=== PATIENT | male | born 1960 | race Caucasian/White ===

== ENCOUNTER → 2018-01-25 | Outpatient (CLI) | payer OTHER ==
[~2018-01-25] MED LIST: DARVOCET N 1001 TAB PO; DAYPRO600 M1 PO; FLEXERIL10 MG PO; KEFLEX500 M1 PO; Motrin,Rufen800 MG PO; NORCO 5-325 TA1 EACH PO; ULTRAM50 MG PO
[2018-01-25 11:55] LABS: HEMATOCRIT 51.3 % (42.0-52.0); HEMOGLOBIN 16.9 g/dl (14.0-18.0); MEAN CELL VOLUME 92.9 fl (80.0-94.0); MEAN CORPUSCULAR HGB 30.6 pg (27.0-31.0); MEAN CORPUSCULAR HGB CONC 32.9 g/dl (33.0-37.0); RED BLOOD COUNT 5.52 10*6/uL (4.50-5.90); RED CELL DISTRI WIDTH 13.3 % (0-14.5); WHITE BLOOD COUNT 8.1 10*3/uL (4.8-10.8)
[2018-01-25 12:19] LABS: ALBUMIN 4.1 gm/dl (3.1-4.5); ALKALINE PHOSPHATASE 121 U/L (45-117); BUN 13 mg/dl (7-24); CHLORIDE 107 mmol/L (98-107); CHOLESTEROL 253 mg/dL (<200); CREATININE 1.01 mg/dL (0.70-1.30); HDL CHOLESTEROL 35 mg/dl (40-60); LDL CHOLESTEROL 190 mg/dL (9-159); POTASSIUM 4.1 mmol/L (3.5-5.1); SGOT/AST 17 IU/L (3-35); SGPT/ALT 36 U/L (12-78); SODIUM 140 mmol/L (136-145); TOTAL PROTEIN 7.4 gm/dL (6.4-8.2); TRIGLYCERIDES 138 mg/dl (<150); VLDL CHOLESTEROL 28 mg/dL (6-40)
== END | disposition home or self-care (01) ==
LOC: LAB 11:23
PROVIDERS: Registered Nurse Flight
DX: E78.5 Hyperlipidemia, unspecified (principal); R03.0 Elevated blood-pressure reading, without diagnosis of hypertension; R97.20 Elevated prostate specific antigen [PSA]

== ENCOUNTER → 2023-09-06 | Outpatient (CLI) | payer MEDICAID ==
[2023-09-06 09:43] LABS: BASO # 0.1 10*3/uL (0.0-0.1); BASO % 1.1 % (0.0-1.0); EOS # 0.3 10*3/uL (0.0-0.4); EOS % 3.1 % (1.0-4.0); HEMATOCRIT 48.4 % (42.0-52.0); LYMPH # 2.4 10*3/uL (1.3-4.4); LYMPH % 27.9 % (27.0-41.0); MEAN CELL VOLUME 92.7 fl (80.0-94.0); MEAN CORPUSCULAR HGB 31.2 pg (27.0-31.0); MEAN CORPUSCULAR HGB CONC 33.7 g/dl (33.0-37.0); MONO # 0.6 10*3/uL (0.1-1.0); MONO % 7.4 % (3.0-9.0); NEUT # 5.1 10*3/uL (2.3-7.9); NEUT % 60.1 % (47.0-73.0); PLATELET COUNT AUTOMATED 318 10*3/uL (130-400); RED BLOOD COUNT 5.22 10*6/uL (4.50-5.90); RED CELL DISTRI WIDTH 13.4 % (0-14.5); WHITE BLOOD COUNT 8.5 10*3/uL (4.8-10.8)
[2023-09-06 10:09] LABS: ALKALINE PHOSPHATASE 112 U/L (46-116); BUN 10 mg/dl (9-23); CHLORIDE 110 mmol/L (98-107); CHOLESTEROL 216 mg/dL (<200); LDL CHOLESTEROL 157 mg/dL (9-159); POTASSIUM 4.1 mmol/L (3.4-5.1); SGPT/ALT 12 U/L (5-49); TOTAL PROTEIN 6.8 gm/dL (6.0-8.0); TRIGLYCERIDES 103 mg/dl (<150)
== END ==
LOC: LAB 09:12
PROVIDERS: ATTEND Nurse Practitioner Family
DX: Z12.5 Encounter for screening for malignant neoplasm of prostate (principal); Z12.11 Encounter for screening for malignant neoplasm of colon; Z72.0 Tobacco use; Z12.12 Encounter for screening for malignant neoplasm of rectum; G89.29 Other chronic pain; M54.9 Dorsalgia, unspecified; I10 Essential (primary) hypertension

== ENCOUNTER → 2023-10-14 | Outpatient (CLI) | payer MEDICAID ==
[2023-10-19 12:08] LABS: % FREE PSA 28.8 % (.); FREE PSA 2.095 ng/mL (.)
== END | disposition home or self-care (01) ==
LOC: LAB 10:14
PROVIDERS: Urology; ATTEND Nurse Practitioner Family
DX: R97.20 Elevated prostate specific antigen [PSA] (principal)

== ENCOUNTER → 2023-11-29 | Outpatient (CLI) | payer MEDICAID | END | disposition home or self-care (01) | LOC: MRI 08:56 | PROVIDERS: ATTEND Nurse Practitioner Family | DX: M47.817 Spondylosis without myelopathy or radiculopathy, lumbosacral region (principal); M51.37 Other intervertebral disc degeneration, lumbosacral region; M48.07 Spinal stenosis, lumbosacral region; M48.54XA Collapsed vertebra, not elsewhere classified, thoracic region, initial encounter for fracture ==

== ENCOUNTER → 2024-01-31 | Outpatient (CLI) | payer MEDICAID ==
[2024-01-31 10:16] LABS: BASO # 0.1 10*3/uL (0.0-0.1); BASO % 0.5 % (0.0-1.0); EOS # 0.3 10*3/uL (0.0-0.4); EOS % 2.6 % (1.0-4.0); HEMATOCRIT 46.7 % (42.0-52.0); LYMPH # 2.6 10*3/uL (1.3-4.4); LYMPH % 26.7 % (27.0-41.0); MEAN CELL VOLUME 92.7 fl (80.0-94.0); MEAN CORPUSCULAR HGB 31.3 pg (27.0-31.0); MEAN CORPUSCULAR HGB CONC 33.8 g/dl (33.0-37.0); MEAN PLATELET VOLUME 8.4 fl (9.6-12.3); MONO # 0.8 10*3/uL (0.1-1.0); MONO % 7.9 % (3.0-9.0); NEUT % 61.8 % (47.0-73.0); PLATELET COUNT AUTOMATED 349 10*3/uL (130-400); RED BLOOD COUNT 5.04 10*6/uL (4.50-5.90); RED CELL DISTRI WIDTH 13.6 % (0-14.5); WHITE BLOOD COUNT 9.7 10*3/uL (4.8-10.8)
[2024-01-31 10:45] LABS: ALKALINE PHOSPHATASE 126 U/L (46-116); BUN 14 mg/dl (9-23); CHLORIDE 110 mmol/L (98-107); CHOLESTEROL 217 mg/dL (<200); LDL CHOLESTEROL 157 mg/dL (9-159); POTASSIUM 3.9 mmol/L (3.4-5.1); SGPT/ALT 16 U/L (5-49); TRIGLYCERIDES 125 mg/dl (<150)
== END | disposition home or self-care (01) ==
LOC: LAB 09:55
PROVIDERS: ATTEND Nurse Practitioner Family
DX: I10 Essential (primary) hypertension (principal); M54.9 Dorsalgia, unspecified; R97.20 Elevated prostate specific antigen [PSA]; G89.29 Other chronic pain

== ENCOUNTER → 2024-05-30 | Outpatient (CLI) | payer MEDICAID | END | disposition home or self-care (01) | LOC: LAB 15:19 | PROVIDERS: ATTEND Urology | DX: R97.20 Elevated prostate specific antigen [PSA] (principal) ==

== ENCOUNTER 2024-06-09 13:27 | Emergency (ER) | payer MEDICAID ==
[~2024-06-09] VITALS: Ht 177.8 cm; Wt 83.0 kg
[2024-06-09 13:32] VITALS: BP 172/94
[2024-06-09] MEDS ORDERED: Acetaminophen/Hydrocodone 5 MG/325 MG TABLET PO ONE (14:30)
[2024-06-09 14:39] LABS: BASO # 0.1 10*3/uL (0.0-0.1); BASO % 0.9 % (0.0-1.0); BILIRUBIN Negative (Negative); BLOOD Trace-Lysed (Negative); CLARITY Cloudy (Clear); COLOR Dark Yellow (Yellow); EOS # 0.2 10*3/uL (0.0-0.4); EOS % 4.2 % (1.0-4.0); GLUCOSE Negative (Negative); HEMATOCRIT 47.1 % (42.0-52.0); KETONE Trace (Negative); LEUKO ESTERASE 2+ (Negative); MEAN CELL VOLUME 93.3 fl (80.0-94.0); MEAN CORPUSCULAR HGB 30.5 pg (27.0-31.0); MEAN CORPUSCULAR HGB CONC 32.7 g/dl (33.0-37.0); MONO # 0.6 10*3/uL (0.1-1.0); MONO % 10.8 % (3.0-9.0); NEUT # 3.3 10*3/uL (2.3-7.9); NEUT % 59.5 % (47.0-73.0); NITRITE Positive (Negative); PLATELET COUNT AUTOMATED 295 10*3/uL (130-400); RED BLOOD COUNT 5.05 10*6/uL (4.50-5.90); RED CELL DISTRI WIDTH 13.3 % (0-14.5); SPECIFIC GRAVITY 1.025 (1.001-1.030); WHITE BLOOD COUNT 5.5 10*3/uL (4.8-10.8)
[2024-06-09 14:45] LABS: BACTERIA 4+; RBC 0-2 rbc/hpf (0-2); WBC 21-30 wbc/hpf (0-5)
[2024-06-09 14:46] LABS: EPITHELIAL CELLS 0-2
[2024-06-09 14:55] LABS: ALKALINE PHOSPHATASE 148 U/L (46-116); BUN 15 mg/dl (9-23); CHLORIDE 105 mmol/L (98-107); POTASSIUM 4.1 mmol/L (3.4-5.1); SGPT/ALT 43 U/L (5-49); TOTAL PROTEIN 7.4 gm/dL (6.0-8.0)
[2024-06-09] MEDS ORDERED: CIPRO500 MG PO (15:54)
== END 2024-06-09 16:12 | disposition home or self-care (01) ==
LOC: ED 13:27
PROVIDERS: Nurse Practitioner
DX: N45.3 Epididymo-orchitis (principal); Z88.0 Allergy status to penicillin

== ENCOUNTER → 2024-06-27 | Outpatient (CLI) | payer MEDICAID ==
[~2024-06-27] MED LIST changes: +CIPRO500 MG PO
== END | disposition home or self-care (01) ==
LOC: US 03:59
PROVIDERS: ATTEND Urology
DX: N43.3 Hydrocele, unspecified (principal); N45.2 Orchitis; N50.82 Scrotal pain

== ENCOUNTER → 2024-09-18 | Outpatient (CLI) | payer MEDICAID ==
[2024-09-18 11:03] LABS: BASO # 0.1 10*3/uL (0.0-0.1); EOS # 0.2 10*3/uL (0.0-0.4); EOS % 3.3 % (1.0-4.0); HEMATOCRIT 46.1 % (42.0-52.0); MEAN CELL VOLUME 91.5 fl (80.0-94.0); MEAN CORPUSCULAR HGB 30.4 pg (27.0-31.0); MEAN CORPUSCULAR HGB CONC 33.2 g/dl (33.0-37.0); MEAN PLATELET VOLUME 10.4 fl (9.6-12.3); MONO # 0.6 10*3/uL (0.1-1.0); NEUT # 3.2 10*3/uL (2.3-7.9); NEUT % 46.4 % (47.0-73.0); PLATELET COUNT AUTOMATED 112 10*3/uL (130-400); RED BLOOD COUNT 5.04 10*6/uL (4.50-5.90); RED CELL DISTRI WIDTH 13.2 % (0-14.5)
[2024-09-18 11:36] LABS: ALKALINE PHOSPHATASE 95 U/L (46-116); BUN 20 mg/dl (9-23); CHLORIDE 107 mmol/L (98-107); CHOLESTEROL 236 mg/dL (<200); LDL CHOLESTEROL 174 mg/dL (9-159); POTASSIUM 4.2 mmol/L (3.4-5.1); SGPT/ALT 12 U/L (5-49); TOTAL PROTEIN 6.8 gm/dL (6.0-8.0); TRIGLYCERIDES 117 mg/dl (<150)
== END | disposition home or self-care (01) ==
LOC: LAB 10:32
PROVIDERS: ATTEND Nurse Practitioner Family
DX: I10 Essential (primary) hypertension (principal); G89.29 Other chronic pain; E78.00 Pure hypercholesterolemia, unspecified

== ENCOUNTER → 2024-10-11 | Outpatient (CLI) | payer MEDICAID ==
[2024-10-14 23:03] LABS: % FREE PSA 28.2 % (.)
== END | disposition home or self-care (01) ==
LOC: LAB 12:01
PROVIDERS: ATTEND Urology
DX: R97.20 Elevated prostate specific antigen [PSA] (principal)

== ENCOUNTER → 2024-11-01 | Outpatient (CLI) | payer MEDICAID | END | disposition home or self-care (01) | LOC: CT 13:50 | PROVIDERS: ATTEND Nurse Practitioner Family | DX: Z12.2 Encounter for screening for malignant neoplasm of respiratory organs (principal); I25.10 Atherosclerotic heart disease of native coronary artery without angina pectoris; R91.8 Other nonspecific abnormal finding of lung field; J43.9 Emphysema, unspecified; F17.210 Nicotine dependence, cigarettes, uncomplicated ==

== ENCOUNTER → 2025-01-01 | Outpatient (CLI) | payer MEDICAID ==
[2025-01-01 16:30] LABS: BASO # 0.1 10*3/uL (0.0-0.1); BASO % 0.6 % (0.0-1.0); EOS # 0.3 10*3/uL (0.0-0.4); EOS % 3.4 % (1.0-4.0); HEMATOCRIT 47.3 % (42.0-52.0); MEAN CELL VOLUME 93.8 fl (80.0-94.0); MEAN PLATELET VOLUME 10.8 fl (9.6-12.3); MONO # 0.8 10*3/uL (0.1-1.0); MONO % 8.8 % (3.0-9.0); NEUT # 4.9 10*3/uL (2.3-7.9); PLATELET COUNT AUTOMATED 95 10*3/uL (130-400); RED BLOOD COUNT 5.04 10*6/uL (4.50-5.90); WHITE BLOOD COUNT 8.5 10*3/uL (4.8-10.8)
[2025-01-01 16:43] LABS: ALKALINE PHOSPHATASE 102 U/L (46-116); BUN 18 mg/dl (9-23); CHLORIDE 108 mmol/L (98-107); CHOLESTEROL 171 mg/dL (<200); LDL CHOLESTEROL 108 mg/dL (9-159); POTASSIUM 4.3 mmol/L (3.4-5.1); SGPT/ALT 22 U/L (5-49); TOTAL PROTEIN 6.7 gm/dL (6.0-8.0); TRIGLYCERIDES 78 mg/dl (<150)
== END | disposition home or self-care (01) ==
LOC: LAB 08:16
PROVIDERS: ATTEND Nurse Practitioner Family
DX: I10 Essential (primary) hypertension (principal); G89.29 Other chronic pain; E78.2 Mixed hyperlipidemia; M54.50 Low back pain, unspecified; D69.6 Thrombocytopenia, unspecified; Z12.2 Encounter for screening for malignant neoplasm of respiratory organs; Z00.00 Encounter for general adult medical examination without abnormal findings

== ENCOUNTER → 2025-01-15 | Outpatient (CLI) | payer MEDICAID | END | disposition home or self-care (01) | LOC: LAB 09:45 | PROVIDERS: ATTEND Urology | DX: R97.20 Elevated prostate specific antigen [PSA] (principal) ==

== ENCOUNTER → 2025-03-14 | Outpatient (CLI) | payer MEDICAID | LOC: RAD 12:04 | PROVIDERS: ATTEND Nurse Practitioner Family | DX: R07.89 Other chest pain (principal) ==

== ENCOUNTER 2025-05-05 10:38 | Emergency (ER) | payer MEDICAID ==
[~2025-05-05] VITALS: Ht 177.8 cm; Wt 81.6 kg
[~2025-05-05 10:38] MED LIST changes: +CELECOXIB200 M1 PO; +LISINOPRIL20 MG PO; +METHOCARBAMOL500 M1 PO; +ROSUVASTATIN CA10 MG PO; +TAMSULOSIN HCL0.4 MG PO
[2025-05-05 10:48] VITALS: BP 132/79
== END 2025-05-05 11:08 | disposition home or self-care (01) ==
LOC: ED 10:38
DX: Z46.6 Encounter for fitting and adjustment of urinary device (principal); Z87.891 Personal history of nicotine dependence; Z98.890 Other specified postprocedural states; Z88.0 Allergy status to penicillin

== ENCOUNTER → 2025-05-13 | Outpatient (CLI) | payer MEDICAID ==
[2025-05-13 15:07] LABS: BUN 15 mg/dl (9-23); SGPT/ALT 16 U/L (5-49)
== END | disposition home or self-care (01) ==
LOC: RHCWE 10:05
PROVIDERS: ATTEND Nurse Practitioner Family
DX: N17.9 Acute kidney failure, unspecified (principal); R33.9 Retention of urine, unspecified

== ENCOUNTER 2025-06-23 10:58 | Emergency (ER) | payer MEDICAID ==
[~2025-06-23] VITALS: Ht 177.8 cm; Wt 82.6 kg
[2025-06-23 11:17] VITALS: BP 145/82
[2025-06-23 11:48] LABS: BILIRUBIN Negative (Negative); BLOOD Trace-Lysed (Negative); CLARITY Clear (Clear); COLOR Yellow (Yellow); KETONE Negative (Negative); LEUKO ESTERASE 1+ (Negative); NITRITE Positive (Negative); PH 6.5 (4.5-8.0); SPECIFIC GRAVITY <= 1.005 (1.001-1.030); UROBILINOGEN 1.0 E.U./dl (0.0-1.0)
[2025-06-23 12:01] LABS: BACTERIA 3+; RBC 0-2 rbc/hpf (0-2)
[2025-06-23] MEDS ORDERED: Nitrofurantoin Monohydrate/N 100 MG CAP PO ONE (12:30)
[2025-06-23] MEDS ORDERED: MACROBID100 M1 PO (12:31)
== END 2025-06-23 12:33 | disposition home or self-care (01) ==
LOC: ED 10:58
PROVIDERS: Nurse Practitioner
DX: N39.0 Urinary tract infection, site not specified (principal); R33.9 Retention of urine, unspecified; Z96.0 Presence of urogenital implants; I10 Essential (primary) hypertension; E78.00 Pure hypercholesterolemia, unspecified; Z88.0 Allergy status to penicillin; Z98.890 Other specified postprocedural states